=== PATIENT | male | born 1950 | race Caucasian/White ===

== ENCOUNTER 2019-12-31 15:30 | Emergency (ER) | payer OTHER, BC ==
[2019-12-31 15:45] VITALS: BP 122/80
--- NOTE | 2019-12-31 16:10 | NUR ---
Per registration patient stated that he was going to leave. I called patient at listed number and explained to patient that the order for a vascular study was already ordered and that we were just waiting for them to be available to perform it. Patient stated, "I can't be in there with all those sick people. All I need is an ultrasound." I stated that if he could be patient that it would be done as soon as able. He continued to state that he would not wait with all the sick people in the lobby.
== END 2019-12-31 17:08 | disposition left against medical advice (07) ==
LOC: ER 15:31
DX: M79.661 Pain in right lower leg (principal); Z53.21 Procedure and treatment not carried out due to patient leaving prior to being seen by health care provider